=== PATIENT | male | born 1950 | race Caucasian/White ===

== ENCOUNTER 2024-10-20 23:00 | Inpatient (IN) | payer OTHER ==
[2024-10-20] MEDS ORDERED: NA CHLORIDE 0.9% 100 ML ONE (23:37)
[2024-10-20] MEDS ORDERED: KETOROLAC 30 MG/ML INJ ONE (23:37)
[2024-10-20] MEDS ORDERED: VANCOMYCIN 1 GM/VIAL ONE (23:37)
[2024-10-20] MEDS ORDERED: NA CHLORIDE 0.9% 250 ML ONE (23:37)
[2024-10-20] MEDS ORDERED: NA CHLORIDE 0.9% 2,000 ML ONE (23:38)
[2024-10-20] MEDS ORDERED: CEFAZOLIN SODIUM 2 GM/VIAL ONE (23:39)
[2024-10-20] MEDS ORDERED: ACETAMINOPHEN 160 MG/5 ML UCUP ONE (23:39)
[2024-10-20] MEDS ORDERED: HYDROCORTISONE SUC 100 MG INJ ONE (23:46)
[2024-10-21 00:28] LABS: Absolute Basophils 0.1 K/uL (0-0.5); Absolute Lymphocytes (CBC) 0.3 K/uL (0.7-4.9); Absolute Monocytes 0.7 K/uL (0.1-1.3); Absolute Neutrophil 11.3 K/uL (1.8-8.0); Basophils % 0.9 % (0-1.3); Eosinophils % 0.3 % (0-4.4); Hematocrit 38.4 % (39.6-49.0); Hemoglobin 12.8 g/dL (13.6-17.9); Lymphocytes % 2.2 % (15.3-44.8); MCH 26.7 pg (27.0-35.0); MCHC 33.3 g/dL (32.0-36.0); MCV 80.2 fL (80-100); MPV 11.2 fL (7.6-11.3); Neutrophils % 90.6 % (41.7-73.7); Nucleated Red Blood Cells % 0.1 % (0-0); Platelets 140 thou/uL (152-406); RBC Red Blood Cell Count 4.79 M/uL (4.33-5.43); Red Cell Distribution Width 13.8 % (12.1-15.2)
[2024-10-21 00:29] LABS: PT Prothrombin Time 11.9 SECONDS (10-13.0); PTT, Activated Partial Thromb 30.2 SECONDS (27.2-37.4); Protime INR 1.05
[2024-10-21] MEDS ORDERED: METOPROLOL TARTRATE 5 MG/5 ML INJ IV ONE (00:40)
[2024-10-21 00:50] LABS: Albumin 2.7 g/dL (3.4-5.0); Albumin/Globulin Ratio 0.5 (1.1-1.8); Bilirubin Direct 0.2 mg/dL (0-0.2); Bilirubin Indirect, Calculated 0.3 mg/dL (0.2-0.8); Bilirubin Total 0.5 mg/dL (0.2-1.0); Globulin 5.1 g/dL (2.3-3.5); Protein, Total 7.8 g/dL (6.4-8.2); Troponin High Sensitivity 16.7 pg/mL (<58.9)
[2024-10-21 00:51] LABS: Magnesium 2.1 mg/dL (1.6-2.4)
[2024-10-21 01:03] LABS: Influenza A Ag Negative; Influenza B Ag Negative; SARS-CoV-2 Antigen Rapid Res Negative (Negative)
[2024-10-21 01:32] LABS: Band Neutrophils 45 % (0-1); Differential Total Cells Count 100; Lymphocytes 2 % (15-42); Metamyelocytes 1 % (0-0); Monocytes 4 % (0-10); Reactive Lymphocytes 2 %; Segmented Neutrophils 45 % (40-80)
[2024-10-21 01:33] LABS: Blood Morphology Comment NOT SEEN (NOT SEEN); Platelet Estimate ADEQ
[2024-10-21] MEDS ORDERED: LEVALBUTEROL 1.25 MG/3 ML NEB ONE ×2 (01:37→04:26)
[2024-10-21] MEDS ORDERED: IPRATROPIUM BROM 0.5MG/2.5ML ONE ×2 (01:37→04:25)
[2024-10-21 01:58] LABS: Arterial Blood Carboxyhemoglob 0.7 % (0-1.5); Blood Gas Oxyhemoglobin 92.5 % (94-97); Blood O2 Saturation 93.7 % (92-98.5)
[2024-10-21 01:59] LABS: Blood Gas THB 13.3 g/dl (12-18)
[2024-10-21] MEDS ORDERED: ALBUMIN HUMAN 25% 50 ML IV ONE (02:33)
[2024-10-21] MEDS ORDERED: ALBUMIN HUMAN 25% 150 ML IV ONE (02:38)
[2024-10-21] MEDS: BUDESONIDE 0.5 MG/2 ML NEB ONE (02:43)
--- NOTE | 2024-10-21 03:35 | RAD REPORT ---
CT CHEST ABDOMEN PELVIS WITH IV CONTRAST CLINICAL INDICATIONS: Pneumonia COMPARISON: CT chest 06/08/2024. Chest . CT chest from 08/06/2024 is not available fo r comparison at time of interpretation. TECHNIQUE: CT images of the chest, abdomen and pelvis were obtained following administration of intra venous contrast. Multiplanar reformats were provided. Dose lowering techniques such as automated exposure control, iterative reconstruction, and mA and/or kV adjustment for patient size was utilized for this examination. CHEST FINDINGS: LOWER NECK: Unremarkable. AIRWAYS: Trachea and mainstem bronchi are patent. LUNGS/PLEURA: Small right pleural effusion with associated mild pleural thickening, suggesting underl chidi inflammation. Trace left pleural effusion. Patchy consolidative and groundglass opacities in bilateral lower lobes, and bilateral lung apices, to a lesser degree upper lobes and right middle lob e, concerning for multifocal pneumonia. 8 mm partially calcified nodule in right upper lobe on series 201 image 41, possibly postprocedural changes. Trace pneumothorax versus extrapleural air fish g right middle lobe with associated parenchymal opacification on series 201 image 64, new since prior exam. VASCULATURE: No evidence of thoracic aortic aneurysm or dissection. MEDIASTINUM/NODES: Multiple enlarged mediastinal lymph nodes are grossly similar to previous noncontr ast axial exam, accounting in difference in technique. HEART: Normal heart size. No pericardial effusion. CHEST WALL: Unremarkable. BONES: Stable T12 anterior wedging . Mild multilevel degenerative changes of thoracic spine. ABDOMEN/PELVIS FINDINGS: LIVER: Unremarkable. BILIARY: Partially contracted gallbladder with circumferential wall thickening. No pericholecystic fl uid. No radiopaque gallstones. No biliary ductal dilatation.. PANCREAS: Unremarkable. SPLEEN: Borderline prominent in size, measuring approximately 13.0 cm craniocaudally.. ADRENALS: Unremarkable. KIDNEYS/URETERS: No nephrolithiasis or hydroureteronephrosis. Bilateral Bosniak 1 cysts up to 3.9 cm; no follow-up imaging is recommended. STOMACH: Gastrostomy in place. Stomach is fluid distended. BOWEL: Colonic diverticulosis without acute diverticulitis. Multiple proximal to mid small bowel loop s show circumferential wall thickening, suspicious for enteritis. No bowel obstruction. APPENDIX: Normal. MESENTERY/PERITONEUM: Mild mesenteric edema. No free fluid or free air. No focal collection. RETROPERITONEUM: No adenopathy. URINARY BLADDER: Unremarkable. REPRODUCTIVE: Unremarkable. VASCULAR: No aortic aneurysm. Mesentery vessels are engorged. ABDOMINAL/PELVIC WALL: Unremarkable. BONES: Mild multilevel degenerative changes are present in the spine. IMPRESSION: 1. Multifocal pneumonia, most prominent in bilateral lower lobes. 2. Small right pleural effusion with associated mild pleural thickening, suggesting underlying infl ammation. Trace left pleural effusion. 3. Trace pneumothorax versus extrapleural air along right middle lobe with associated adjacent foca l parenchymal opacification, new since prior exam. 4. Mediastinal lymphadenopathy, likely reactive. 5. Partially contracted gallbladder with circumferential wall thickening may be related to underlyi ng liver disease versus mesenteric edema. 6. Multiple proximal to mid small bowel loops show circumferential wall thickening, suspicious for enteritis. 7. Borderline splenomegaly. Electronically signed by: Chelly Stover MD 10/21/2024 03:25 AM CDT Due to temporary technical issues with the PACS/AppMyDay reporting system, reports are being ronnie d by the in-house radiologist without review as a courtesy to ensure prompt reporting the interpreting radiologist is fully responsible for the content of the report. Transcribed Date/Time: 10/21/2024 3:35 AM
--- NOTE | 2024-10-21 04:12 | EDPHYS ---
Physician Documentation [facility] Name: Abilio Carmichael Age: 74 yrs Sex: Male : 1950 Arrival Date: 10/20/2024 Time: 23:00 Bed 7 Private MD: ED Physician Oswaldo Varela HPI: 10/20 23:14 This 74 yrs old Male presents to ER via Unassigned with complaints of sp4 Breathing Difficulty, Cough, Weakness. 10/21 04:17 74-year-old male with history of COPD and throat cancer history of hypothyroidism sp4 history of prior aspiration pneumonia presents with acute moderate to severe shortness of breath associated with yellow sputum fever and generalized weakness.. 04:18 Patient reports that on 10/12/2024 patient had balloon dilatation of the esophagus and sp4 since then he had developed persistent cough associated with yellow sputum. 04:18 Patient also reported that yesterday he fell onto his left chest wall and developed sp4 left chest wall pain. . Historical: - Allergies: 10/20 23:23 No Known Allergies; kl - PMHx: 23:28 Hypothyroidism; throat cancer; about 25 years ago w/radiation; aspiration pneumonia; kl - PSHx: 23:28 feeding tube; kl - Immunization history:: Adult Immunizations up to date. - Infectious Disease History:: Denies. - Social history:: Smoking status: Patient denies any tobacco usage or history of. - Family history:: not pertinent. ROS: 10/21 04:21 Constitutional: Negative for chills, and weight loss, positive chest wall pain, sp4 positive cough, positive wheezing, positive generalized weakness, positive tachycardia All other systems are negative, Exam: 04:21 Constitutional: Frail elderly male, ill-appearing, toxic appearing, tachycardic on sp4 arrival at 180, dyspneic tachypnea upon arrival Head/Face: Normocephalic, atraumatic. Eyes: Pupils equal round and reactive to light, extra-ocular motions intact. Lids and lashes normal. Conjunctiva and sclera are not injected. Cornea within normal limits. Periorbital areas with no swelling, redness, or edema. ENT: Nares patent. No nasal discharge, no septal abnormalities noted. Tympanic membranes are normal and external auditory canals are clear. Oropharynx with no redness, swelling, or masses, exudates, or evidence of obstruction, uvula midline. Mucous membranes moist. Neck: Trachea midline, no thyromegaly or masses palpated, scarring from prior neck dissection Chest/axilla: Normal chest wall appearance and motion. Nontender with no deformity. No lesions are appreciated. Cardiovascular: Regular rate and rhythm with a normal S1 and S2. No gallops, murmurs, or rubs. Normal PMI, no JVD. No pulse deficits. Respiratory: Lungs have equal breath sounds bilaterally, positive dyspnea and tachypnea, positive bilateral crackles, positive retractions, positive accessory muscle use Abdomen/GI: Soft, with normal bowel sounds. No distension or tympany. No guarding or rebound. No evidence of tenderness throughout. Back: No spinal tenderness. No costovertebral tenderness. Skin: Warm, dry with normal turgor. Normal color with no rashes, no lesions, and no evidence of cellulitis. MS/ Extremity: Pulses equal, no cyanosis. Neurovascular intact. Full, normal range of motion. Neuro: Awake and alert, GCS 15, oriented to person, place, time, and situation. Cranial nerves II-XII grossly intact. Motor strength 5/5 in all extremities. Sensory grossly intact. Psych: Awake, alert, with orientation to person, place and time. Behavior, mood, and affect are within normal limits 04:24 ECG was reviewed by the Attending Physician. Tachycardia rate 181 appears to have sinus sp4 tachycardia EKG time 2324 04:39 Repeat EKG 0 432 normal sinus rhythm rate estimated to be at 80. Otherwise normal sp4 EKG, no ST elevation or depression, no ectopy, normal axis, normal intervals. Vital Signs: 10/20 23:20 BP 99 / 69; Pulse 174; Resp 24; Temp 101.4(O); Pulse Ox 83% on R/A; Weight 56.7 kg; kl Height 5 ft. 8 in. ; Pain 6/10; 10/21 00:30 BP 124 / 71; Pulse 159; Resp 27; Pulse Ox 94% ; vc1 01:03 BP 113 / 72; Pulse 91; Resp 24; Temp 98.6; Pulse Ox 92% on 10 lpm Non-rebreather mask; br2 03:05 BP 86 / 51; Pulse 86; Resp 24 (BIPAP); Pulse Ox 93% ; br2 03:46 BP 105 / 74; Pulse 81; Resp 18; Pulse Ox 97% on bipap; br2 04:15 BP 98 / 68; Pulse 83; Resp 18; Pulse Ox 96% on BiPAP; vc1 04:38 BP 92 / 67; Pulse 80; Resp 36; Temp 97.1; Pulse Ox 96% on bipap; br2 05:30 BP 100 / 78; Pulse 82; Resp 24; Pulse Ox 96% on BiPAP; vc1 10/20 23:20 Body Mass Index 19.01 (56.70 kg, 172.72 cm) kl 10/20 23:20 Pain Scale: Adult kl 10/20 23:20 taken to exam room, o2 at 6 lpm via nc applied kl Fabián Coma Score: 10/21 04:21 Eye Response: spontaneous(4). Motor Response: obeys commands(6). Verbal Response: sp4 oriented(5). Total: 15. MDM: 01:04 Medical Screening Exam initiated sp4 03:10 ED course: EXAM DESCRIPTION: Chest Single View CLINICAL HISTORY:74 years Male, CHEST sp4 PAIN Comparison: CT chest dated 08/06/2024 IMPRESSION: Right lung base consolidation concerning for pneumonia. Chronic lung changes. Right pleural effusion. No pneumothorax. Cardiomediastinal silhouette is within normal limits. No acute osseous abnormality. Electronically signed by: Amadou Corey DO 10/20/2024 11:55 PM. 03:53 ED course: IMPRESSION: 1. Multifocal pneumonia, most prominent in bilateral lower sp4 lobes. 2. Small right pleural effusion with associated mild pleural thickening, suggesting underlying inflammation. Trace left pleural effusion. 3. Trace pneumothorax versus extrapleural air along right middle lobe with associated adjacent focal parenchymal opacification, new since prior exam. 4. Mediastinal lymphadenopathy, likely reactive. 5. Partially contracted gallbladder with circumferential wall thickening may be related to underlying liver disease versus mesenteric edema. 6. Multiple proximal to mid small bowel loops show circumferential wall thickening, suspicious for enteritis. 7. Borderline splenomegaly. Electronically signed by: Chelly Stover MD 10/21/2024 03:25 AM CDT . 04:11 ED course: Patient improved on the BiPAP. At this time stable for ICU admission. Will sp4 remain in ICU hold in ER.. 04:25 Differential diagnosis: Anemia Anxiety Reaction asthma, Bronchitis CHF exacerbation, sp4 Chronic Obstructive Pulmonary Disease Myocardial Infarction pneumonia, Pneumothorax. Data reviewed: vital signs, nurses notes, old medical records, lab test result(s), EKG, radiologic studies, CT scan, plain films. Consideration of Admission/Observation Patient was admitted/placed on observation. Escalation of care including admission/observation considered. Management of patient was discussed with the following: Hospitalist: Mateo NARANJO . ED course: Patient has improved on the BiPAP. Possible right-sided trace pneumothorax, however at this time chest tube not indicated.. 10/20 23:14 Order name: Basic Metabolic Panel; Complete Time: : sp4 10/20 23:14 Order name: CBC with Diff; Complete Time: sp4 10/20 23:14 Order name: LFT's; Complete Time: sp4 10/20 23:14 Order name: Magnesium; Complete Time: sp4 10/20 23:14 Order name: NT PRO-BNP; Complete Time: : sp4 10/20 23:14 Order name: Troponin HS; Complete Time: sp4 10/20 23:14 Order name: COVID-19 Ag + Flu A+B Ag; Complete Time: : sp4 10/20 23:26 Order name: Blood Culture Adult (2) sp4 10/20 23:26 Order name: Lactate w/ 2H reflex if indic.; Complete Time: sp4 10/20 23:26 Order name: Ptt, Activated; Complete Time: : sp4 10/20 23:26 Order name: Type And Screen; Complete Time: 03: sp4 10/20 23:26 Order name: CRP; Complete Time: : sp4 10/21 00:13 Order name: Protime (+INR); Complete Time: :23 EDMS 10/21 00:32 Order name: Manual Differential; Complete Time: 02: EDMS 10/21 01:03 Order name: ABG; Complete Time: sp4 10/21 03:04 Order name: ABO/RH no charge; Complete Time: 03:08 EDMS 10/21 04:19 Order name: TSH; Complete Time: 20:17 sp4 10/21 04:19 Order name: T4 Free; Complete Time: 20:17 sp4 10/21 04:23 Order name: Troponin High Sensitivity; Complete Time: 20:17 4 10/21 05:16 Order name: CBC with Automated Diff; Complete Time: 20:17 EDWA 10/21 05:16 Order name: Comprehensive Metabolic Panel; Complete Time: 20:17 EDMS 10/21 05:16 Order name: Lactate w/ 2H reflex if indic.; Complete Time: 20:17 EDMS 10/21 08:01 Order name: Glucose, Ancillary Testing; Complete Time: 20:17 EDWA 10/21 10:01 Order name: CBC Smear Scan; Complete Time: 20:17 EDMS 10/21 10:20 Order name: Ghost Lactate-NO COLLECT Timer; Complete Time: 20:17 EDWA 10/21 12:07 Order name: Lactate Sepsis 2 HR Follow-up; Complete Time: 20:17 EDWA 10/20 23:14 Order name: XRAY Chest (1 view); Complete Time: 20:17 4 10/20 23:31 Order name: CT Chest, Abdomen, Pelvis - W/Contrast; Complete Time: 20:17 4 10/20 23:14 Order name: EKG; Complete Time: 23:15 4 10/21 04:23 Order name: EKG; Complete Time: 04:23 4 10/21 05:16 Order name: CONS Physician Consult [facility] 10/21 05:16 Order name: Social Service Consult [facility] 10/20 23:14 Order name: Cardiac monitoring; Complete Time: 23:27 sp4 10/20 23:14 Order name: EKG - Nurse/Tech; Complete Time: 23:28 4 10/20 23:14 Order name: IV Saline Lock; Complete Time: 23:28 4 10/20 23:14 Order name: Labs collected and sent; Complete Time: 23:28 4 10/20 23:14 Order name: O2 Per Protocol; Complete Time: 23:28 4 10/20 23:14 Order name: O2 Sat Monitoring; Complete Time: 23:28 4 10/21 08:24 Order name: Labs - recollect needed: recollect lavender top; Complete Time: 09:56 bd EC/08 23:24 Rate is 181 beats/min. Rhythm is regular, Sinus tachycardia. Right axis deviation sp4 noted. MO interval is normal. QRS interval is normal. No ST changes noted. Clinical impression: No evidence of ischemia. Interpreted by me. Reviewed by me. Administered Medications: 23:30 Not Given (Duplicate Order): ns 0.9% 1000 ml IV at 1000 ml once; to be given as a bolus sp4 over 60 minutes 23:59 Drug: NS 0.9% IV (30 ml/kg) 30 ml/kg IV at bolus once; Sepsis Protocol; to be given as br2 a bolus over 90 minutes Route: IV; Rate: bolus; Site: right antecubital; 10/21 03:00 Follow up: Response: No adverse reaction; IV Status: Completed infusion; IV Intake: br2 1680ml 10/20 23:59 Drug: Solu-CORTEF IVP 100 mg IVP once Route: IVP; Site: right antecubital; br2 10/21 01:00 Follow up: Response: No adverse reaction br2 00:00 Drug: Cefepime IVPB 2 grams IVPB at 200 ml/hr once over 30 mins; (mix in NS 100 mL) br2 Route: IVPB; Rate: 200 ml/hr; Infused Over: 30 mins; Site: left hand; 01:00 Follow up: IV Status: Completed infusion; IV Intake: 100ml br2 00:00 Drug: Ketorolac IVP 15 mg IVP once Route: IVP; Site: left hand; br2 00:30 Follow up: Response: No adverse reaction br2 00:00 Drug: Acetaminophen Feeding Tube Liquid 1000 mg Feeding Tube once Route: Feeding Tube; br2 00:30 Follow up: Response: No adverse reaction br2 00:00 Drug: Ondansetron IVP 4 mg IVP once; over 2 minutes Route: IVP; Site: right antecubital;br2 00:30 Follow up: Response: No adverse reaction br2 00:01 Drug: vancoMYCIN IVPB 1 grams IVPB once over 2 hrs Route: IVPB; Infused Over: 2 hrs; br2 Site: right antecubital; 02:00 Follow up: IV Status: Completed infusion; IV Intake: 250ml br2 00:47 Drug: Metoprolol IVP 5 mg IVP once; Hold for SBP <100 or HR <60. Route: IVP; Site: br2 right antecubital; 01:30 Follow up: Response: No adverse reaction br2 02:47 Drug: Levalbuterol Inhalation 1.25 mg Inhalation once Route: Inhalation; br2 02:47 Drug: Ipratropium Inhalation Aerosol 0.5 mg Inhalation once Route: Inhalation; br2 02:47 Drug: budesonide 1 mg/2 mL 1 mg Inhalation once Route: Inhalation; br2 03:06 Drug: Albumin IVPB 25 grams 100 ml IVPB once; (Note: Albumin 25% concentration) Volume: br2 100 ml; Route: IVPB; Site: left hand; 03:30 Follow up: IV Status: Completed infusion; IV Intake: 100ml br2 03:06 Drug: Albumin IVPB 25 grams 100 ml IVPB once; (Note: Albumin 25% concentration) Volume: br2 100 ml; Route: IVPB; Site: left hand; 04:00 Follow up: IV Status: Completed infusion; IV Intake: 100ml br2 04:31 Drug: Levalbuterol Inhalation 1.25 mg Inhalation once Route: Inhalation; vc1 05:00 Follow up: Response: No adverse reaction br2 04:31 Drug: Ipratropium Inhalation Aerosol 0.5 mg Inhalation once Route: Inhalation; vc1 05:00 Follow up: Response: No adverse reaction br2 04:31 Drug: D5-NS IV 1000 ml IV at 125 ml/hr continuous Route: IV; Rate: 125 ml/hr; Site: [facility] right antecubital; 12:44 Follow up: Response: No adverse reaction; IV Status: Completed infusion; IV Intake: cm10 1000ml Disposition: 04:06 Critical Care:. sp4 Disposition Summary: 10/21/24 04:11 Hospitalization Ordered Notes: Hospitalization Status: Inpatient Admission sp4 Provider: Chinyere Galindo sp4 Condition: Serious sp4 Problem: new sp4 Symptoms: have improved sp4 Bed/Room Type: Standard sp4 Location: Intensive Care Unit(10/21/24 11:26) bd Room Assignment: 1-(10/21/24 11:26) bd Diagnosis - Acute bilateral multifocal pneumonia, acute aspiration pneumonia, COPD sp4 exacerbation, acute respiratory failure with hypoxemia and hypercarbia. Forms: - Medication Reconciliation Form sp4 - SBAR form sp4 - Leadership Thank You Letter sp4 Critical care time excluding procedures: 04:06 Critical care time: Bedside Care: 46 minutes, Consultation: 12 minutes, Family sp4 Intervention: 12 minutes. Total time: 70 minutes Signatures: Dispatcher [employer] EDMS MichaelaYeny Mesha Garcia RN RN kl Lisa Ahmadi RN RN vc1 Oswaldo Varela MD MD sp4 Antonia Pena RN RN br2 Светлана Patel RN cm10 Corrections: (The following items were deleted from the chart) 00:12 0408 23:15 PROTIME (+INR)+COAG.LAB.BRZ ordered. EDMS EDMS 10/21 01:03 01:03 BiPap ([employer] Only)+RC.RAD.BRZ ordered. EDMS EDMS 03:39 03:01 Chest Abdomen Pelvis W Cont ordered. EDMS EDMS 06:00 04:11 Intensive Care Unit sp4 vc1 06:00 04:11 sp4 vc1 11:26 06:00 [facility] ER HOLD vc1 bd 11: 06:00 ERHOLD- vc1 bd
--- NOTE | 2024-10-21 04:12 | ER ---
Nurse's Notes [facility] Name: Abilio Carmichael Age: 74 yrs Sex: Male : 1950 Arrival Date: 10/20/2024 Time: 23:00 Bed 7 Private MD: Diagnosis: Acute bilateral multifocal pneumonia, acute aspiration pneumonia, COPD exacerbation, acute respiratory failure with hypoxemia and hypercarbia. Presentation: 10/20 23:20 Chief complaint: Spouse and/or significant other states: patient had a balloon dilation kl of esophagus on 10/12 and has had cough and been spitting up a lot of mucus since. s/p fall yesterday with pain to left chest wall/ribs. c/o generalized weakness. hx of feeding tube due to aspiration pna. Coronavirus screen: Vaccine status: Patient reports being unvaccinated. Ebola Screen: No symptoms or risks identified at this time. Initial Sepsis Screen: Does the patient meet any 2 criteria? RR > 20 per min. Temp <36.0*C (96.8*F)) or > 38.3*C (100.9*F). HR > 90 bpm. Yes Does the patient have a suspected source of infection? If YES to both, name of provider notified: Oswaldo Varela MD Risk Assessment: Do you want to hurt yourself or someone else? Patient reports no desire to harm self or others. Onset of symptoms was October 12, 2024. 23:20 Method Of Arrival: Wheelchair kl 23:20 Acuity: HILDA 3 kl Historical: - Allergies: 23:23 No Known Allergies; kl - PMHx: 23:28 Hypothyroidism; throat cancer; about 25 years ago w/radiation; aspiration pneumonia; kl - PSHx: 23:28 feeding tube; kl - Immunization history:: Adult Immunizations up to date. - Infectious Disease History:: Denies. - Social history:: Smoking status: Patient denies any tobacco usage or history of. - Family history:: not pertinent. Screenin:11 [facility] ED Fall Risk Assessment (Adult) History of falling in the last 3 months, vc1 including since admission No falls in past 3 months (0 pts) Confusion or Disorientation No (0 pts) Intoxicated or Sedated No (0 pts) Impaired Gait Yes (1 pt) Mobility Assist Device Used Yes (1 pt) Altered Elimination Yes (1 pt) Score/Fall Risk Level 3 or more points = High Risk Oriented to surroundings, Maintained a safe environment, Educated pt \T\ family on fall prevention, incl call for assistance when getting out of bed, Used ambulatory aids as needed (educated on \T\ assisted with), Remained with patient while ambulating, Utilized family, sitter, or virtual economic analyst as indicated. Abuse screen: Denies threats or abuse. Nutritional screening: Difficulty chewing/swallowing? Yes Intervention for positive screen: ED Physician notified. Tuberculosis screening: No symptoms or risk factors identified. Assessment: 23:20 Reassessment: Patient and/or family updated on plan of care and expected duration. Pain br2 level reassessed. Patient is alert, oriented x 3, equal unlabored respirations, skin warm/dry/pink. General: Appears uncomfortable, Behavior is calm, cooperative. Pain: Complains of pain in left lateral anterior chest Pain currently is 10 out of 10 on a pain scale. Neuro: Pierson Agitation-Sedation Scale (RASS): 0 - Alert and Calm Level of Consciousness is awake, alert, obeys commands, Oriented to person, place, time, situation. Cardiovascular: Rhythm is sinus tachycardia. Respiratory: Reports shortness of breath cough that is dry, Airway is patent Respiratory effort is shallow, Respiratory pattern is regular, symmetrical, Breath sounds are diminished bilaterally. GI: PEG tube. : No signs and/or symptoms were reported regarding the genitourinary system. EENT: No signs and/or symptoms were reported regarding the EENT system. Derm: No signs and/or symptoms reported regarding the dermatologic system. Musculoskeletal: No signs and/or symptoms reported regarding the musculoskeletal system. 10/21 01:18 Reassessment: Patient and/or family updated on plan of care and expected duration. Pain br2 level reassessed. Patient is alert, oriented x 3, equal unlabored respirations, skin warm/dry/pink. Patient states feeling better. 03:45 Reassessment: Patient and/or family updated on plan of care and expected duration. Pain br2 level reassessed. Patient is alert, oriented x 3, equal unlabored respirations, skin warm/dry/pink. Patient states feeling better. Patient states symptoms have improved. General: Appears in no apparent distress. comfortable. 04:09 Reassessment: Patient and/or family updated on plan of care and expected duration. Pain br2 level reassessed. Patient is alert, oriented x 3, equal unlabored respirations, skin warm/dry/pink. Patient states feeling better. Respiratory: Airway is patent Respiratory effort is even, unlabored, Patient placed on BiPAP:. 05:39 Reassessment: Patient appears in no apparent distress at this time. No changes from vc1 previously documented assessment. Patient and/or family updated on plan of care and expected duration. Pain level reassessed. Vital Signs: 10/20 23:20 BP 99 / 69; Pulse 174; Resp 24; Temp 101.4(O); Pulse Ox 83% on R/A; Weight 56.7 kg; kl Height 5 ft. 8 in. ; Pain 12/22; 10/21 00:30 BP 124 / 71; Pulse 159; Resp 27; Pulse Ox 94% ; vc1 01:03 BP 113 / 72; Pulse 91; Resp 24; Temp 98.6; Pulse Ox 92% on 10 lpm Non-rebreather mask; br2 03:05 BP 86 / 51; Pulse 86; Resp 24 (BIPAP); Pulse Ox 93% ; br2 03:46 BP 105 / 74; Pulse 81; Resp 18; Pulse Ox 97% on bipap; br2 04:15 BP 98 / 68; Pulse 83; Resp 18; Pulse Ox 96% on BiPAP; vc1 04:38 BP 92 / 67; Pulse 80; Resp 36; Temp 97.1; Pulse Ox 96% on bipap; br2 05:30 BP 100 / 78; Pulse 82; Resp 24; Pulse Ox 96% on BiPAP; vc1 10/20 23:20 Body Mass Index 19.01 (56.70 kg, 172.72 cm) 10/20 23:20 Pain Scale: Adult 10/20 23:20 taken to exam room, o2 at 6 lpm via nc applied Fabián Coma Score: 10/21 04:21 Eye Response: spontaneous(4). Motor Response: obeys commands(6). Verbal Response: sp4 oriented(5). Total: 15. ED Course: 10/20 23:02 Patient arrived in ED. mr 23:14 Oswaldo Varela MD is Attending Physician. sp4 23:23 Triage completed. kl 23:23 Arm band placed on Patient placed in an exam room. kl 23:23 Patient has correct armband on for positive identification. Bed in low position. Call vc1 light in reach. Side rails up X2. Adult w/ patient. development vice president on. Pulse ox on. NIBP on. 23:30 Antonia Pena RN is Primary Nurse. br2 23:38 XRAY Chest (1 view) In Process Unspecified. EDMS 23:58 Inserted saline lock: 20 gauge in right antecubital area, using aseptic technique. br2 Blood collected. Flushed with 10 mL NS. 23:59 Inserted saline lock: 20 gauge in left hand, using aseptic technique. br2 04 01:17 O2 via PT PUT ON BIPAP. br2 01:58 CT Chest, Abdomen, Pelvis - W/Contrast In Process Unspecified. EDMS 04:09 Noise minimized. Lights dimmed. br2 04:10 Chinyere Galindo MD is Hospitalizing Provider. sp4 07:22 Primary Nurse role handed off by Antonia Pena RN bd 12:43 Assist provider with bone marrow aspiration. Patient admitted, IV remains in place. cm10 Administered Medications: 10/20 23:30 Not Given (Duplicate Order): ns 0.9% 1000 ml IV at 1000 ml once; to be given as a bolus sp4 over 60 minutes 23:59 Drug: NS 0.9% IV (30 ml/kg) 30 ml/kg IV at bolus once; Sepsis Protocol; to be given as br2 a bolus over 90 minutes Route: IV; Rate: bolus; Site: right antecubital; 10/21 03:00 Follow up: Response: No adverse reaction; IV Status: Completed infusion; IV Intake: br2 1680ml 10/20 23:59 Drug: Solu-CORTEF IVP 100 mg IVP once Route: IVP; Site: right antecubital; br2 10/21 01:00 Follow up: Response: No adverse reaction br2 00:00 Drug: Cefepime IVPB 2 grams IVPB at 200 ml/hr once over 30 mins; (mix in NS 100 mL) br2 Route: IVPB; Rate: 200 ml/hr; Infused Over: 30 mins; Site: left hand; 01:00 Follow up: IV Status: Completed infusion; IV Intake: 100ml br2 00:00 Drug: Ketorolac IVP 15 mg IVP once Route: IVP; Site: left hand; br2 00:30 Follow up: Response: No adverse reaction br2 00:00 Drug: Acetaminophen Feeding Tube Liquid 1000 mg Feeding Tube once Route: Feeding Tube; br2 00:30 Follow up: Response: No adverse reaction br2 00:00 Drug: Ondansetron IVP 4 mg IVP once; over 2 minutes Route: IVP; Site: right antecubital;br2 00:30 Follow up: Response: No adverse reaction br2 00:01 Drug: vancoMYCIN IVPB 1 grams IVPB once over 2 hrs Route: IVPB; Infused Over: 2 hrs; br2 Site: right antecubital; 02:00 Follow up: IV Status: Completed infusion; IV Intake: 250ml br2 00:47 Drug: Metoprolol IVP 5 mg IVP once; Hold for SBP <100 or HR <60. Route: IVP; Site: br2 right antecubital; 01:30 Follow up: Response: No adverse reaction br2 02:47 Drug: Levalbuterol Inhalation 1.25 mg Inhalation once Route: Inhalation; br2 02:47 Drug: Ipratropium Inhalation Aerosol 0.5 mg Inhalation once Route: Inhalation; br2 02:47 Drug: budesonide 1 mg/2 mL 1 mg Inhalation once Route: Inhalation; br2 03:06 Drug: Albumin IVPB 25 grams 100 ml IVPB once; (Note: Albumin 25% concentration) Volume: br2 100 ml; Route: IVPB; Site: left hand; 03:30 Follow up: IV Status: Completed infusion; IV Intake: 100ml br2 03:06 Drug: Albumin IVPB 25 grams 100 ml IVPB once; (Note: Albumin 25% concentration) Volume: br2 100 ml; Route: IVPB; Site: left hand; 04:00 Follow up: IV Status: Completed infusion; IV Intake: 100ml br2 04:31 Drug: Levalbuterol Inhalation 1.25 mg Inhalation once Route: Inhalation; vc1 05:00 Follow up: Response: No adverse reaction br2 04:31 Drug: Ipratropium Inhalation Aerosol 0.5 mg Inhalation once Route: Inhalation; vc1 05:00 Follow up: Response: No adverse reaction br2 04:31 Drug: D5-NS IV 1000 ml IV at 125 ml/hr continuous Route: IV; Rate: 125 ml/hr; Site: vc1 right antecubital; 12:44 Follow up: Response: No adverse reaction; IV Status: Completed infusion; IV Intake: cm10 1000ml Medication: 00:46 VIS not applicable for this client. vc1 Intake: 01:00 IV: 100ml; Total: 100ml. br2 02:00 IV: 250ml; Total: 350ml. br2 03:00 IV: 1680ml; Total: 2030ml. br2 03:30 IV: 100ml; Total: 2130ml. br2 04:00 IV: 100ml; Total: 2230ml. br2 12:44 IV: 1000ml; Total: 3230ml. cm10 Outcome: 04:11 Decision to Hospitalize by Provider. sp4 12:43 Admitted to ER Hold. Please see [facility] for further documentation. cm10 12:43 Condition: good 12:43 Instructed on the need for admit, 12:44 Patient left the ED. cm10 Signatures: Dispatcher [employer] EDMS Yeny Jennings Kimberly, RN RN mily Vazquez Libia, [facility] Reg mr Lisa Ahmadi, RN RN vc1 Oswaldo Varela MD MD sp4 Светлана Patel RN RN cm10 Antonia Pena, RN RN br2 Corrections: (The following items were deleted from the chart) 10/20 23:24 23:20 BP 99 / 69; Pulse 174bpm; Resp 24bpm; Pulse Ox 83% RA; Temp 101.4F Oral; 56.7 kg; kl Height 5 ft. 8 in.; BMI: 19.0; Pain 6/10, Adult; kl 10/21 03:39 03:12 In radiology for Chest Abdomen Pelvis W Cont. EDMS EDMS
[2024-10-21] MEDS ORDERED: D5 0.9 NS 1,000 ML IV ONE (04:26)
[2024-10-21] MEDS ORDERED: ACETAMINOPHEN 500 MG TAB PO PRN (05:07)
[2024-10-21] MEDS ORDERED: ONDANSETRON 4 MG/2 ML VIAL IV PRN (05:07)
--- NOTE | 2024-10-21 05:18 | P.HP ---
Patient History Date of Service: 10/21/24 Reason for admission: Septic shock History of Present Illness: 74-year-old male with a past medical history of PEG tube, hypothyroidism, throat cancer presenting with shortness of breath and weakness. He is now seen resting on BiPAP in the emergency room. Upon arrival he was found to be hypotensive, febrile, hypoxic, and tachypneic. Denies any tobacco use. Associated symptoms include cough and weakness. Review of Systems General: As per HPI Eyes: Unremarkable ENT: Unremarkable Respiratory: Cough, Shortness of Breath Cardiovascular: Unremarkable Gastrointestinal: Unremarkable Genitourinary: Unremarkable Musculoskeletal: Unremarkable Integumentary: Unremarkable Neurological: Unremarkable Lymphatics: Unremarkable Physical Examination - Vital Signs Pulse: 87 Pulse Ox (%): 94 - Physical Exam General: Alert, Moderate distress HEENT: Normocephalic Neck: Supple Respiratory: Diminished Cardiovascular: No edema, Normal pulses Capillary refill: <2 Seconds Gastrointestinal: Normal bowel sounds Musculoskeletal: No clubbing Integumentary: No rashes Neurological: Normal strength at 5/5 x4 extr - Studies Laboratory Data (last 24 hrs) 10/20/24 10/20/24 10/20/24 23:30 23:30 23:30 WBC 12.40 H Hgb 12.8 L Hct 38.4 L Plt Count 140 L PT 11.9 INR 1.05 APTT 30.2 Sodium 128 L Potassium 5.0 BUN 39 H Creatinine 1.16 Glucose 137 H Magnesium 2.1 Total Bilirubin 0.5 AST 35 ALT 29 Alkaline Phosphatase 53 10/20/24 23:14 WBC Hgb Hct Plt Count PT Cancelled INR Cancelled APTT Sodium Potassium BUN Creatinine Glucose Magnesium Total Bilirubin AST ALT Alkaline Phosphatase Assessment and Plan - Plan Septic shock Multifocal pneumonia Acute respiratory failure Hyponatremia Hypothyroidism History of throat cancer Continue IV fluid, admit to ICU, blood cultures pending Start Merrem, IV hydrocortisone, and IV vancomycin Monitor sodium level, repeat BMP Consult pulmonology Trend lactic acid Obtain echocardiogram - Advance Directives Does patient have a Living Will: Yes Does patient have a Durable POA for Healthcare: Yes
--- NOTE | 2024-10-21 05:48 | RAD REPORT ---
EXAM DESCRIPTION: Chest Single View CLINICAL HISTORY: 4 years Male, CHEST PAIN Comparison: CT chest dated 08/06/2024 IMPRESSION: Right lung base consolidation concerning for pneumonia. Chronic lung changes. Right pleural effusion. No pneumothorax. Cardiomediastinal silhouette is within normal limits. No acute osseous abnormality. Electronically signed by: Amadou Corey DO 10/20/2024 11:55 PM CDT RP 9 Due to temporary technical issues with the PACS/Relevant e-solution reporting system, reports are being signed by the in-house radiologist without review as a courtesy to ensure prompt reporting the [facility] radiologist is fully responsible for the content of the report. Transcribed Date/Time: 10/21/2024 5:47 AM
[2024-10-21] MEDS ORDERED: Meropenem 1000 MG/VIAL IV ONE (08:39)
[2024-10-21] MEDS ORDERED: HYDROCORTISONE SUC 100 MG INJ ONE (08:39)
[2024-10-21] MEDS ORDERED: ENOXAPARIN 40 MG/0.4 ML SQ ONE (08:40)
[2024-10-21] MEDS ORDERED: NA CHLORIDE 0.9% 100 ML ONE (08:40)
[2024-10-21 08:50] LABS: Absolute Lymphocytes (CBC) 0.2 K/uL (0.7-4.9); Absolute Monocytes 0.3 K/uL (0.1-1.3); Absolute Neutrophil 5.4 K/uL (1.8-8.0); Basophils % 0.1 % (0-1.3); Hematocrit 31.5 % (39.6-49.0); Hemoglobin 10.6 g/dL (13.6-17.9); Lymphocytes % 3.8 % (15.3-44.8); MCH 27.5 pg (27.0-35.0); MCHC 33.5 g/dL (32.0-36.0); MCV 81.9 fL (80-100); MPV 10.9 fL (7.6-11.3); Neutrophils % 91.1 % (41.7-73.7); Platelets 84 thou/uL (152-406); RBC Red Blood Cell Count 3.85 M/uL (4.33-5.43); Red Cell Distribution Width 13.8 % (12.1-15.2)
[2024-10-21] MEDS: ENOXAPARIN 40 MG/0.4 ML SQ SCH (08:57)
[2024-10-21] MEDS: Meropenem 1,000 MG in NA CHLORIDE 0.9% 100 ML IV SCH (08:57)
[2024-10-21] MEDS: HYDROCORTISONE SUC 100 MG INJ IV SCH (08:58)
[2024-10-21] MEDS ORDERED: ENOXAPARIN 40 MG/0.4 ML SQ SCH (09:00)
[2024-10-21 09:42] LABS: Thyroid Stimulating Hormone < 0.005 uIU/mL (0.358-3.740)
[2024-10-21 10:01] LABS: Blood Morphology Comment NOT SEEN (NOT SEEN); Platelet Estimate ADEQ; White Blood Cell Scan OK (OK)
[2024-10-21 10:38] LABS: Albumin 3.2 g/dL (3.4-5.0); Albumin/Globulin Ratio 0.8 (1.1-1.8); Anion Gap 11.7 mEq/L (5.0-15.0); Bilirubin Total 0.6 mg/dL (0.2-1.0); Globulin 3.8 g/dL (2.3-3.5); Potassium 4.7 mEq/L (3.5-5.1)
--- NOTE | 2024-10-21 11:25 | P.PN ---
Subjective Date of Service: 10/21/24 Chief Complaint: Septic shock Subjective: No new changes No complaints, on supplemental oxygen Review of Systems General: Unremarkable Respiratory: Shortness of Breath Cardiovascular: Unremarkable Musculoskeletal: Unremarkable Neurological: Unremarkable Physical Examination - Vital Signs Temperature: 98.0 F Blood Pressure: 107/75 Pulse: 81 Respirations: 22 Pulse Ox (%): 97 - Physical Exam General: Oriented x3 HEENT: Atraumatic Neck: Supple Cardiovascular: No edema Gastrointestinal: Soft and benign Musculoskeletal: No clubbing, No swelling, No contractures - Studies Laboratory Data (last 24 hrs) 10/20/24 10/20/24 10/20/24 23:30 23:30 23:30 WBC 12.40 H Hgb 12.8 L Hct 38.4 L Plt Count 140 L PT 11.9 INR 1.05 APTT 30.2 Sodium 128 L Potassium 5.0 BUN 39 H Creatinine 1.16 Glucose 137 H Magnesium 2.1 Total Bilirubin 0.5 AST 35 ALT 29 Alkaline Phosphatase 53 10/20/24 23:14 WBC Hgb Hct Plt Count PT Cancelled INR Cancelled APTT Sodium Potassium BUN Creatinine Glucose Magnesium Total Bilirubin AST ALT Alkaline Phosphatase Assessment And Plan - Plan 1. Acute hypoxic respiratory failure secondary to multifocal pneumonia - CT of chest/abdomen/pelvis with contrast positive for multifocal pneumonia - Likely aspiration related - Continue vancomycin and meropenem - Blood cultures x 2 ordered 2. History of hypothyroidism - Continue levothyroxine at home dose 3. DVT prophylaxis -Subcu Lovenox
--- NOTE | 2024-10-21 11:56 | EKG ---
Test Date: 2024-10-20 Test Time: 23:24:54 Salesperson Sewing Machines: LEELA MEASUREMENT RESULTS: Intervals: Rate: 181 CT: 124 QRSD: 68 QT: 210 QTc: 364 [place]: P: 247 CT: 124 QRS: 93 T: 71 INTERPRETIVE STATEMENTS: Supraventricular tachycardia Rightward axis Pulmonary disease pattern Nonspecific ST abnormality Abnormal ECG Compared to ECG 08/09/2005 01:55:00 Right-axis deviation now present ST (T wave) deviation now present Sinus rhythm no longer present Electronically Signed On 10-21-24 11:56:04 CDT by Artemio Coker
--- NOTE | 2024-10-21 11:56 | EKG ---
Test Date: 2024-10-21 Test Time: 04:32:37 Machinery Repair Maintenance Supervisor: BUCKY MEASUREMENT RESULTS: Intervals: Rate: 136 CO: 140 QRSD: 78 QT: 380 QTc: 571 [place]: P: 75 CO: 140 QRS: 74 T: 75 INTERPRETIVE STATEMENTS: Sinus rhythm with frequent premature ventricular complexes Otherwise normal ECG Compared to ECG 08/09/2005 01:55:00 Ventricular premature complex(es) now present Electronically Signed On 10-21-24 11:55:15 CDT by Artemio Coker
--- NOTE | 2024-10-21 12:26 | ECHO ---
HEIGHT: 5 ft 8 in WEIGHT: 125 lb 0 oz DATE OF STUDY: 10/21/[address]: Chinyere Galindo MD 2-DIMENSIONAL: YES M.MODE: YES DOPPLER: YES COLOR FLOW: YES TDS: PORTABLE: YES DEFINITY: BUBBLE STUDY: DIAGNOSIS: CONCERN FOR HEART FAILURE CARDIAC HISTORY: CATHERIZATION: NO SURGERY: NO PROSTHETIC VALVE: NO PACEMAKER: NO MEASUREMENTS (cm) DIASTOLIC (NORMALS) SYSTOLIC (NORMALS) IVSd 0.9 (0.6-1.2) LA Diam 2.6 (1.9-4.0) LVEF 60-65% LVIDd 2.7 (3.5-5.7) LVIDs 1.9 (2.0-3.5) %FS 31% LVPWd 1.1 (0.6-1.2) Ao Diam 2.6 (2.0-3.7) 2 DIMENSIONAL ASSESSMENT: RIGHT ATRIUM: NORMAL LEFT ATRIUM: NORMAL RIGHT VENTRICLE: NORMAL LEFT VENTRICLE: NORMAL TRICUSPID VALVE: TRACE TRICUSPID REGURGITATION MITRAL VALVE: NORMAL PULMONIC VALVE: NORMAL AORTIC VALVE: NORMAL PERICARDIAL EFFUSION: NONE AORTIC ROOT: NORMAL LEFT VENTRICULAR WALL MOTION: NORMAL DOPPLER/COLOR FLOW: NORMAL COMMENTS: 1. NORMAL LEFT VENTRICULAR SYSTOLIC FUNCTION, EJECTION FRACTION 60-65%, NORMAL WALL MOTION 2. NORMAL DIASTOLIC FUNCTION TECHNOLOGIST: JAN SNYDER
[2024-10-21] MEDS: Ringers Lactate 1,000 ML IV SCH (14:04)
[2024-10-21] MEDS: VANCOMYCIN 1.25 GM in NA CHLORIDE 0.9% 250 ML IVPB SCH (14:05)
--- NOTE | 2024-10-21 16:51 | P.CNS ---
Date of Consult: 10/21/24 Reason for Consult: Bilateral pneumonia Chief Complaint: Bilateral pneumonia History of Present Illness: Patient is 74 years of age presented to the emergency room with worsening shortness of breath cough weakness he has a history of throat cancer recent esophageal dilatation was found to have bilateral pneumonia is currently doing a little better Allergies No Known Allergies Allergy (Unverified 10/21/24 06:58) - Past Medical/Surgical History -: Throat cancer -: Hypothyroidism -: Status post peg tube -: Peg tube - Social History Smoking Status: Former smoker Review of Systems 10-point ROS is otherwise unremarkable General: Weakness Respiratory: Cough, Shortness of Breath Physical Examination Temp Pulse Resp BP Pulse Ox 97.5 F 83 22 H 147/96 H 100 10/21/24 16:00 10/21/24 16:00 10/21/24 16:00 10/21/24 16:00 10/21/24 16:00 General: Alert, In no apparent distress, Mild distress Respiratory: Crackles/rales Cardiovascular: No edema, Regular rate/rhythm, Normal S1 S2 Gastrointestinal: Normal bowel sounds, Soft and benign Laboratory Data (last 24 hrs) 10/20/24 10/20/24 10/20/24 23:30 23:30 23:30 WBC 12.40 H Hgb 12.8 L Hct 38.4 L Plt Count 140 L PT 11.9 INR 1.05 APTT 30.2 Sodium 128 L Potassium 5.0 BUN 39 H Creatinine 1.16 Glucose 137 H Magnesium 2.1 Total Bilirubin 0.5 AST 35 ALT 29 Alkaline Phosphatase 53 10/20/24 23:14 WBC Hgb Hct Plt Count PT Cancelled INR Cancelled APTT Sodium Potassium BUN Creatinine Glucose Magnesium Total Bilirubin AST ALT Alkaline Phosphatase - Problems (1) Bilateral pneumonia Current Visit: Yes Status: Acute Plan: Patient is 74 years of age with a history of throat cancer treated with radiation along time ago he recently had esophageal dilatation presented with worsening cough congestion bilateral pneumonia he does have bilateral infiltrates currently he is hemodynamically stable blood pressure stable patient's oxygenation is satisfactory white count is mildly elevated DC steroids DC IV fluids trial of low-dose Lasix blood cultures pending sputum cultures patient has a PEG tube Qualifiers: Pneumonia type: due to unspecified organism
[2024-10-21] MEDS: FUROSEMIDE 20 MG/ 2ML VIAL IV ONE (17:30)
[2024-10-21] MEDS: JEVITY 1.5 CAL LIQUID 1,000 ML BOT FT SCH (19:51)
[2024-10-22] MEDS: ALBUTEROL 2.5 MG/3 ML NEB SOL NEB PRN (03:05)
[2024-10-22] MEDS: IPRATROPIUM BROM 0.5MG/2.5ML NEB PRN (03:05)
[2024-10-22 05:58] LABS: Absolute Lymphocytes (CBC) 0.4 K/uL (0.7-4.9); Absolute Monocytes 0.8 K/uL (0.1-1.3); Absolute Neutrophil 7.4 K/uL (1.8-8.0); Basophils % 0.1 % (0-1.3); Hematocrit 30.6 % (39.6-49.0); Hemoglobin 10.5 g/dL (13.6-17.9); Lymphocytes % 4.4 % (15.3-44.8); MCH 27.5 pg (27.0-35.0); MCHC 34.2 g/dL (32.0-36.0); MCV 80.6 fL (80-100); MPV 11.7 fL (7.6-11.3); Neutrophils % 86.5 % (41.7-73.7); Platelets 106 thou/uL (152-406); Red Cell Distribution Width 13.7 % (12.1-15.2)
[2024-10-22 06:03] VITALS: BMI 18.8
[2024-10-22 06:17] LABS: Anion Gap 8.8 mEq/L (5.0-15.0); Potassium 3.8 mEq/L (3.5-5.1)
[2024-10-22 06:29] LABS: Magnesium 1.9 mg/dL (1.6-2.4)
[2024-10-22] MEDS ORDERED: VANCOMYCIN 1.25 GM in NA CHLORIDE 0.9% 250 ML IVPB SCH (09:00)
[2024-10-22] MEDS: POTASSIUM 25 MEQ EFFERV TAB PO ONE (09:10)
--- NOTE | 2024-10-22 12:33 | P.PN ---
Subjective Date of Service: 10/22/24 Chief Complaint: Bilateral pneumonia Subjective: Improving (Patient is improving doing well no new complaint) Review of Systems General: Weakness Respiratory: Cough, Shortness of Breath Physical Examination - Vital Signs Temperature: 98.8 F Blood Pressure: 128/78 Pulse: 96 Respirations: 26 Pulse Ox (%): 98 - Physical Exam General: Alert, Oriented x3 Respiratory: Diminished Cardiovascular: No edema, Normal S1 S2 Assessment And Plan - Current Problems (Diagnosis) (1) Bilateral pneumonia Current Visit: Yes Status: Acute Plan: Patient is 74 years of age admitted with bilateral pneumonia doing much better vital signs stable oxygenation satisfactory broad-spectrum antibiotics repeat chest x-ray procalcitonin stable to be transferred to the floor probably chemical cell changer to p.o. antibiotics levofloxacin and doxycycline or Augmentin and doxycycline Qualifiers: Pneumonia type: due to unspecified organism
--- NOTE | 2024-10-22 16:24 | P.PN ---
Subjective Date of Service: 10/22/24 Chief Complaint: Bilateral pneumonia No complaints, on supplemental oxygen Physical Examination - Vital Signs Temperature: 98.8 F Blood Pressure: 149/89 Pulse: 93 Respirations: 26 Pulse Ox (%): 100 - Physical Exam General: Alert Respiratory: Diminished Cardiovascular: Regular rate/rhythm Gastrointestinal: Normal bowel sounds Neurological: Normal gait, Normal speech, Normal reflexes 2+ Assessment And Plan - Plan 1. Acute hypoxic respiratory failure secondary to multifocal pneumonia - CT of chest/abdomen/pelvis with contrast positive for multifocal pneumonia -Currently on 3 L of O2, sats in the 90s - Likely aspiration related - Continue vancomycin and meropenem - Blood cultures x 2 negative to date 2. History of hypothyroidism - Continue levothyroxine at home dose 3. History of throat cancer status post radiation therapy, - Currently in remission 4. DVT prophylaxis -Subcu Lovenox
[2024-10-23 05:15] LABS: Absolute Basophils 0.1 K/uL (0-0.5); Absolute Eosinophils 0.1 K/uL (0-0.5); Absolute Lymphocytes (CBC) 0.6 K/uL (0.7-4.9); Absolute Monocytes 0.6 K/uL (0.1-1.3); Absolute Neutrophil 7.7 K/uL (1.8-8.0); Basophils % 0.7 % (0-1.3); Eosinophils % 1.2 % (0-4.4); Hematocrit 34.6 % (39.6-49.0); Hemoglobin 11.6 g/dL (13.6-17.9); Lymphocytes % 6.3 % (15.3-44.8); MCH 26.9 pg (27.0-35.0); MCHC 33.6 g/dL (32.0-36.0); MCV 80.2 fL (80-100); Monocytes % 7.1 % (3.3-12.3); Nucleated Red Blood Cells % 0.1 % (0-0); Platelets 132 thou/uL (152-406); RBC Red Blood Cell Count 4.32 M/uL (4.33-5.43); Red Cell Distribution Width 13.6 % (12.1-15.2)
[2024-10-23 05:19] LABS: Neutrophils % 84.7 % (41.7-73.7)
[2024-10-23 05:27] LABS: Anion Gap 10.8 mEq/L (5.0-15.0); Potassium 3.8 mEq/L (3.5-5.1)
[2024-10-23] MEDS: KCL 20 MEQ/100 mL IVPB 20 MEQ/100 ML BAG IV SCH (08:34)
--- NOTE | 2024-10-23 08:37 | RAD REPORT ---
EXAMINATION: ONE VIEW CHEST XR CLINICAL INDICATION: Male, 74 years old.,pneumonia TECHNIQUE: Frontal chest projection is submitted. Examination is limited by patient positioning and t echnique. COMPARISON: 10/20/2024 FINDINGS: Patchy bilateral central predominant airspace opacities, mildly progressive. Moderate right pleural e ffusion appears stable. No pneumothorax or sizable left effusion. The heart is normal in size. Mediastinal contours are unremarkable. IMPRESSION: Progressive central predominant bilateral airspace opacities, may relate to worsening pneumonia.
[2024-10-23] MEDS ORDERED: VANCOMYCIN 1.25 GM in NA CHLORIDE 0.9% 250 ML IVPB SCH (09:00)
[2024-10-23] MEDS: LEVOTHYROXINE SOD 0.075 MG TAB PO SCH ×2 (09:00→17:22)
[2024-10-23] MEDS: METOPROLOL TAR 25 MG TAB PO SCH (09:50)
[2024-10-23] MEDS: NA CHLORIDE 0.9% 1,000 ML IV ONE (10:48)
[2024-10-23] MEDS: JEVITY 1.5 CAL LIQUID 1,000 ML BOT FT SCH (14:00)
--- NOTE | 2024-10-23 14:13 | EKG ---
Test Date: 2024-10-23 Test Time: 09:07:37 Coating Line Worker: FERCHO MEASUREMENT RESULTS: Intervals: Rate: 129 [place]: QRSD: 70 QT: 306 QTc: 448 [place]: P: UT: QRS: 59 T: 59 INTERPRETIVE STATEMENTS: Atrial fibrillation with rapid ventricular response Abnormal ECG Compared to ECG 10/21/2024 04:32:37 Sinus rhythm no longer present Ventricular premature complex(es) no longer present Electronically Signed On 10-23-24 14:12:17 CDT by Artemio Coker
--- NOTE | 2024-10-23 18:00 | P.PN ---
Subjective Date of Service: 10/23/24 Chief Complaint: Bilateral pneumonia No complaints, on supplemental oxygen Physical Examination - Vital Signs Temperature: 98.5 F Blood Pressure: 135/83 Pulse: 94 Respirations: 16 Pulse Ox (%): 97 - Physical Exam General: Alert, Oriented x3 HEENT: Atraumatic, Normocephalic, PERRLA Neck: Supple Respiratory: Clear to auscultation bilaterally Cardiovascular: No edema, Normal pulses, Regular rate/rhythm, Normal S1 S2 Gastrointestinal: Normal bowel sounds, Soft and benign, Non-distended Musculoskeletal: No clubbing, No swelling, No contractures Neurological: Normal gait, Normal speech Assessment And Plan - Plan 1. Acute hypoxic respiratory failure secondary to multifocal pneumonia - CT of chest/abdomen/pelvis with contrast positive for multifocal pneumonia -Currently on 3 L of O2, sats in the 90s - Likely aspiration related - Continue vancomycin and meropenem - Blood cultures x 2 negative to date 2. History of hypothyroidism - Continue levothyroxine at home dose 3. History of throat cancer status post radiation therapy, - Currently in remission 4. DVT prophylaxis -Subcu Lovenox
[2024-10-24 06:37] LABS: Anion Gap 8.6 mEq/L (5.0-15.0); Magnesium 1.9 mg/dL (1.6-2.4); Potassium 3.6 mEq/L (3.5-5.1)
[2024-10-24 06:43] LABS: Absolute Eosinophils 0.2 K/uL (0-0.5); Absolute Lymphocytes (CBC) 0.7 K/uL (0.7-4.9); Absolute Monocytes 0.7 K/uL (0.1-1.3); Absolute Neutrophil 5.8 K/uL (1.8-8.0); Basophils % 0.2 % (0-1.3); Eosinophils % 2.5 % (0-4.4); Hematocrit 33.9 % (39.6-49.0); Hemoglobin 11.4 g/dL (13.6-17.9); Lymphocytes % 9.5 % (15.3-44.8); MCH 26.8 pg (27.0-35.0); MCHC 33.5 g/dL (32.0-36.0); MCV 80.2 fL (80-100); MPV 9.7 fL (7.6-11.3); Monocytes % 9.7 % (3.3-12.3); Neutrophils % 78.1 % (41.7-73.7); Platelets 160 thou/uL (152-406); RBC Red Blood Cell Count 4.23 M/uL (4.33-5.43); Red Cell Distribution Width 13.6 % (12.1-15.2)
--- NOTE | 2024-10-24 10:57 | P.PN ---
Subjective Date of Service: 10/24/24 Chief Complaint: Bilateral pneumonia No complaints, on supplemental oxygen Review of Systems 10-point ROS is otherwise unremarkable Physical Examination - Vital Signs Temperature: 98.1 F Blood Pressure: 129/72 Pulse: 80 Respirations: 16 Pulse Ox (%): 93 - Physical Exam General: Alert, Oriented x3 HEENT: Atraumatic, Normocephalic, PERRLA Respiratory: Diminished Cardiovascular: No edema, Normal pulses, Regular rate/rhythm Gastrointestinal: Normal bowel sounds, Hypoactive, Soft and benign Integumentary: No rashes, No breakdown, No significant lesion Neurological: Normal gait, Normal speech Assessment And Plan - Plan 1. Acute hypoxic respiratory failure secondary to multifocal pneumonia - CT of chest/abdomen/pelvis with contrast positive for multifocal pneumonia -Currently on 1 L of O2, sats in the 90s - Likely aspiration related - Continue vancomycin and meropenem - Blood cultures x 2 negative to date 2. History of hypothyroidism - Continue levothyroxine at home dose 3. History of throat cancer status post radiation therapy, - Currently in remission 4. DVT prophylaxis -Subcu Lovenox Disposition: Will discharge home tomorrow on home oxygen
--- NOTE | 2024-10-24 11:52 | P.PN ---
Subjective Date of Service: 10/24/24 Chief Complaint: Bilateral pneumonia Subjective: Improving (Patient is improving he denies any complaints tolerating his tube feeds) Review of Systems General: Weakness Respiratory: Shortness of Breath Physical Examination - Vital Signs Temperature: 98.1 F Blood Pressure: 129/72 Pulse: 80 Respirations: 16 Pulse Ox (%): 93 - Physical Exam General: Alert, In no apparent distress, Oriented x3 Respiratory: Crackles/rales (Crackles on both sides) Cardiovascular: No edema, Regular rate/rhythm, Normal S1 S2 Assessment And Plan - Current Problems (Diagnosis) (1) Bilateral pneumonia Current Visit: Yes Status: Acute Plan: Patient admitted with bilateral pneumonia he has a right-sided pleural effusion otherwise his lab work is unremarkable white count is normal no fever he is still hypoxic we will try him some prednisone to see if we can clear up his infiltrates in the lung so far his cultures are negative vital signs stable possible discharge a.m. I also ordered bilateral decubitus of the chest continue with meropenem Qualifiers: Pneumonia type: due to unspecified organism
[2024-10-24] MEDS: predniSONE 20 MG TAB PO SCH (12:21)
[2024-10-24 12:30] VITALS: O2SAT 92
[2024-10-24] MEDS: LEVOTHYROXINE SOD 0.075 MG TAB PO SCH (18:41)
--- NOTE | 2024-10-24 18:47 | RAD REPORT ---
Procedure: Chest Lateral Decubitus HISTORY: Pleural effusion FINDINGS: Small right pleural effusion does not demonstrate layering on the decubitus films. Bilateral pulmonary opacities compatible with pneumonia
[2024-10-25 08:07] VITALS: BP 117/74; TEMP 978.8
--- NOTE | 2024-10-25 10:11 | P.DS ---
Admission Date: 10/21/24 Discharge Date: 10/25/24 Disposition: AMA-LEFT AGAINST MEDICAL ADVIC Discharge Condition: FAIR Reason for Admission: Bilateral pneumonia - Problems (1) Bilateral pneumonia Status: Acute Qualifiers: Pneumonia type: due to unspecified organism Brief History of Present Illness: Patient is 74 years of age presented to the emergency room with worsening shortness of breath cough weakness he has a history of throat cancer recent esophageal dilatation was found to have bilateral pneumonia is currently doing a little better Hospital Course: Patient is 74 years of age remote history of throat cancer s/p radiation and able to swallow has a peg tube admitted with bilateral pneumonia of unknown etiology patient was treated conservatively with antibiotics was in the ICU then transferred to the floor and he was stabilized all cultures are negative his white count is normal patient was treated with meropenem Patient left AMA today refused oxygen although it was delivered to him and is at the bedside I called in antibiotics into his pharmacy patient's vital signs were stable at discharge he is on 1 L of oxygen blood pressure stable bilateral decubitus films shows a minimal effusion on the right side bilateral pulmonary infiltrates his condition remains stable Vital Signs/Physical Exam: Temp Pulse Resp BP Pulse Ox 978.8 F H 77 14 117/74 93 10/25/24 08:00 10/25/24 08:00 10/25/24 08:00 10/25/24 08:00 10/25/24 08:00 Laboratory Data at Discharge: WBC 7.40 thou/uL (4.3-10.9) 10/24/24 06:08 Hgb 11.4 g/dL (13.6-17.9) L 10/24/24 06:08 Hct 33.9 % (39.6-49.0) L 10/24/24 06:08 Plt Count 160 thou/uL (152-406) 10/24/24 06:08 PT 11.9 SECONDS (10-13.0) 10/20/24 23:30 INR 1.05 10/20/24 23:30 APTT 30.2 SECONDS (27.2-37.4) 10/20/24 23:30 Sodium 135 mEq/L (136-145) L 10/24/24 06:08 Potassium 3.6 mEq/L (3.5-5.1) 10/24/24 06:08 BUN 21 mg/dL (7-18) H 10/24/24 06:08 Creatinine 0.69 mg/dL (0.70-1.30) L 10/24/24 06:08 Glucose 114 mg/dL (74-106) H 10/24/24 06:08 Magnesium 1.9 mg/dL (1.6-2.4) 10/24/24 06:08 Total Bilirubin 0.6 mg/dL (0.2-1.0) 10/21/24 07:38 AST 22 U/L (15-37) 10/21/24 07:38 ALT 23 U/L (16-61) 10/21/24 07:38 Alkaline Phosphatase 46 U/L (45-117) 10/21/24 07:38 Home Medications: Levothyroxine Sodium [Synthroid] 150 mcg PO DAILY 10/22/24 Amox/K Clav [Augmentin 600 MG/5 ML Susp] 5 ml PO BID 10 Days #100 ml 10/25/24 New Medications: Amox/K Clav [Augmentin 600 MG/5 ML Susp] 5 ml PO BID 10 Days #100 ml Followup: Nel Jacinto, [employer] [Primary Care Provider] -
== END 2024-10-25 09:35 | disposition left against medical advice (07) | DRG 871 ==
LOC: ER 23:00 → ERHOLD 10-21 05:07 → 3RD-ICU 10-21 12:33 → 4TH 10-22 17:00
PROVIDERS: ADMIT Family Medicine; ATTEND Internal Medicine
PROC: 4A033R1 Measurement of Arterial Saturation, Peripheral, Percutaneous Approach (ICD-10-PCS; principal; 2024-10-21)
PROC: 5A09457 Assistance with Respiratory Ventilation, 24-96 Consecutive Hours, Continuous Positive Airway Pressure (ICD-10-PCS; 2024-10-21)
DX: A41.9 Sepsis, unspecified organism (principal); J69.0 Pneumonitis due to inhalation of food and vomit; R65.21 Severe sepsis with septic shock; J96.21 Acute and chronic respiratory failure with hypoxia; J96.22 Acute and chronic respiratory failure with hypercapnia; J44.1 Chronic obstructive pulmonary disease with (acute) exacerbation; E87.1 Hypo-osmolality and hyponatremia; E03.9 Hypothyroidism, unspecified; Z53.29 Procedure and treatment not carried out because of patient's decision for other reasons; Z79.890 Hormone replacement therapy; Z87.891 Personal history of nicotine dependence
CPT/HCPCS: 36415; 36600; 71045; 71046; 71260; 74177; 80048; 80053; 80076; 80202; 82805; 82947; 83605; 83735; 83880; 84145; 84439; 84443; 84484; 85025; 85610; 85730; 86140; 86850; 86900; 86901; 87040; 87428; 93005; 93306; 94640; 94660; 97161; 99285; J1650; J1720; J1938; J2185; J3370; J3480; J7030; J7042; J7050; J7120; J7512; J7613; J7614; J7626; J7644; P9047; Q9967